=== PATIENT | male | born 1960 | race Caucasian/White ===

== ENCOUNTER 2022-01-01 06:37 | Inpatient (IN) | payer MEDICARE, MEDICAID ==
[2022-01-01] MEDS ORDERED: Midazolam 1 MG/ML 2 ML SDV ONE ×2 (06:58→09:14)
[2022-01-01] MEDS ORDERED: fentaNYL 100 MCG/2 ML SDV ONE (06:58)
[2022-01-01] MEDS ORDERED: Propofol 200 MG/20 ML SDV ONE ×2 (06:58→09:10)
[2022-01-01] MEDS ORDERED: Nozin Nasal Sanitizer NASBOTH SCH (07:00)
[2022-01-01] MEDS ORDERED: Lactated Ringers 1,000 ML IV SCH (07:15)
[2022-01-01] MEDS ORDERED: Lactated Ringers 1,000 ML IV ONE (07:30)
[2022-01-01] MEDS ORDERED: ceFAZolin 2 GM in Sodium Chloride 0.9% 50 ML IV ONE (07:30)
[2022-01-01] MEDS ORDERED: ceFAZolin 2 GM in Premix Bag 1 BAG IV ONE (07:30)
[2022-01-01] MEDS: Bupivacaine 0.5% 50 ML MDV ONE ×2 (09:33→10:47)
[2022-01-01] MEDS ORDERED: Lactated Ringers 1,000 ML ONE (10:41)
[2022-01-01] MEDS ORDERED: Ondansetron 4 MG/2 ML SDV IVPUSH PRN (10:57)
[2022-01-01] MEDS ORDERED: Magnesium Hydroxide 400 MG/5 ML Susp 30 ML Cup PO PRN (10:57)
[2022-01-01] MEDS ORDERED: traMADol 50 MG Tab PO PRN (10:57)
[2022-01-01] MEDS ORDERED: ceFAZolin 1 GM in Sodium Chloride 0.9% 50 ML IV SCH (11:00)
[2022-01-01] MEDS ORDERED: CLOZAPINE 100 MG PO PRN (11:06)
[2022-01-01] MEDS ORDERED: Morphine 2 MG/ML SYRINGE IVPUSH ONE (11:12)
[2022-01-01] MEDS: Ketorolac 30 MG/ML SDV IVPUSH SCH ×2 (13:11→20:01)
[2022-01-01] MEDS: Morphine 2 MG/ML SYRINGE IVPUSH PRN ×2 (13:13→15:47)
[2022-01-01] MEDS: oxyCODONE 5 MG Tab PO PRN ×3 (13:13→23:59)
[2022-01-01] MEDS: Sodium Chloride 0.9% 1,000 ML IV SCH ×2 (13:16→22:07)
[2022-01-01] MEDS ORDERED: BETHANECHOL CHLORIDE 10 MG PO SCH (14:00)
[2022-01-01] MEDS ORDERED: CLOZAPINE 100MG TAB (PTOM) PO PRN (16:02)
[2022-01-01] MEDS: BETHANECHOL 10 MG PO SCH (16:31)
[2022-01-01] MEDS: Acetaminophen 325 MG Tab PO SCH ×2 (16:31→21:00)
[2022-01-01] MEDS: ceFAZolin 1 GM in Premix Bag 1 BAG IV SCH (16:31)
[2022-01-01] MEDS: QUEtiapine 25 MG Tab PO SCH ×2 (16:31→21:00)
[2022-01-01] MEDS: TRIHEXYPHENIDYL 2 MG PO SCH (16:32)
[2022-01-01] MEDS ORDERED: TRIHEXYPHENIDYL 2 MG PO SCH (17:00)
[2022-01-01] MEDS: Nozin Nasal Sanitizer NASBOTH SCH (20:04)
[2022-01-01] MEDS: CLOZAPINE 100MG TAB (PTOM) PO SCH (20:05)
[2022-01-01] MEDS: Gabapentin 400 MG Cap PO SCH (20:06)
[2022-01-01] MEDS: Docusate Sodium 100 MG Cap PO SCH (20:06)
[2022-01-01] MEDS: Melatonin 3 MG Tab PO SCH (20:07)
[2022-01-01] MEDS: Aspirin 325 MG Tab.EC PO SCH (20:08)
[2022-01-01] MEDS ORDERED: Non-Formulary Medication 1 Each (Melatonin [Melatonin] 3 MG Capsule) PO SCH (21:00)
[2022-01-02] MEDS: ceFAZolin 1 GM in Premix Bag 1 BAG IV SCH (00:03)
[2022-01-02] MEDS: Ketorolac 30 MG/ML SDV IVPUSH SCH ×2 (04:10→11:32)
[2022-01-02] MEDS: Acetaminophen 325 MG Tab PO SCH ×4 (04:11→21:14)
[2022-01-02] MEDS: QUEtiapine 25 MG Tab PO SCH ×4 (05:50→21:14)
[2022-01-02] MEDS: Sodium Chloride 0.9% 1,000 ML IV SCH ×2 (07:02→15:14)
[2022-01-02] MEDS: oxyCODONE 5 MG Tab PO PRN ×3 (07:15→18:25)
[2022-01-02] MEDS: TRIHEXYPHENIDYL 2 MG PO SCH ×2 (07:19→16:58)
[2022-01-02] MEDS: BETHANECHOL 10 MG PO SCH ×3 (07:19→16:58)
[2022-01-02] MEDS: Pantoprazole 40 MG Tab.CR PO SCH (07:20)
[2022-01-02] MEDS: Nozin Nasal Sanitizer NASBOTH SCH ×2 (08:33→21:12)
[2022-01-02] MEDS: CITALOPRAM PO SCH ×2 (08:36)
[2022-01-02] MEDS: Docusate Sodium 100 MG Cap PO SCH ×2 (08:36→21:13)
[2022-01-02] MEDS: Naltrexone 50 MG Tab PO SCH (08:38)
[2022-01-02] MEDS ORDERED: CITALOPRAM HYDROBROMIDE 20 MG PO SCH (09:00)
[2022-01-02] MEDS ORDERED: CLOZAPINE 100 MG PO SCH (09:00)
[2022-01-02] MEDS ORDERED: CLOZAPINE 100MG TAB (PTOM) PO SCH (09:00)
[2022-01-02] MEDS: Aspirin 325 MG Tab.EC PO SCH ×2 (09:54→21:13)
[2022-01-02] MEDS: Melatonin 3 MG Tab PO SCH (21:13)
[2022-01-02] MEDS: Gabapentin 400 MG Cap PO SCH (21:13)
[2022-01-02] MEDS: CLOZAPINE 100MG TAB (PTOM) PO SCH (21:14)
[2022-01-03] MEDS: Acetaminophen 325 MG Tab PO SCH ×2 (04:09→09:14)
[2022-01-03] MEDS: oxyCODONE 5 MG Tab PO PRN ×2 (04:11→09:14)
[2022-01-03] MEDS: QUEtiapine 25 MG Tab PO SCH ×2 (05:59→09:13)
[2022-01-03] MEDS: Pantoprazole 40 MG Tab.CR PO SCH (07:42)
[2022-01-03] MEDS: TRIHEXYPHENIDYL 2 MG PO SCH (07:42)
[2022-01-03] MEDS: BETHANECHOL 10 MG PO SCH ×2 (07:43→11:38)
[2022-01-03] MEDS: Docusate Sodium 100 MG Cap PO SCH (09:13)
[2022-01-03] MEDS: Aspirin 325 MG Tab.EC PO SCH (09:13)
[2022-01-03] MEDS: CITALOPRAM PO SCH ×2 (09:13)
[2022-01-03] MEDS: Naltrexone 50 MG Tab PO SCH (09:13)
[2022-01-03] MEDS: Nozin Nasal Sanitizer NASBOTH SCH (09:14)
[2022-01-03 10:16] VITALS: BP 145/75; PULSE 101
== END 2022-01-03 13:25 | disposition home health service (06) | DRG 470 ==
LOC: JP.SDS 06:37 → JP.MS 10:57 → JP.SDS 01-02 13:20
PROVIDERS: ADMIT Specialist; ATTEND Specialist
PROC: 0SRC0J9 Replacement of Right Knee Joint with Synthetic Substitute, Cemented, Open Approach (ICD-10-PCS; principal; 2022-01-03)
DX: M17.11 Unilateral primary osteoarthritis, right knee (principal); F20.0 Paranoid schizophrenia; E11.9 Type 2 diabetes mellitus without complications; F17.210 Nicotine dependence, cigarettes, uncomplicated; Z79.899 Other long term (current) drug therapy; Z91.030 Bee allergy status; Z88.0 Allergy status to penicillin
CPT/HCPCS: 73560-26-RT; 73560-RT; 97110-GP; 97161-GP; 97165-GO; 97530-GP; 97535-GP; A9270-GY; C1713; C1776; J0690; J1885; J2250; J2270; J2704; J3010; J3490; J7030; J7120